=== PATIENT | female | born 1975 | race African-American/Black ===

== ENCOUNTER → 2016-11-12 | Outpatient (CLI) | payer OTHER | END | disposition home or self-care (01) | LOC: RAD 16:24 | PROVIDERS: ATTEND Family Medicine | DX: M79.604 Pain in right leg (principal); M79.605 Pain in left leg | CPT/HCPCS: 93970 ==

== ENCOUNTER → 2017-02-06 | Outpatient (CLI) | payer OTHER | END | disposition home or self-care (01) | LOC: CVU 14:44 | PROVIDERS: ATTEND Internal Medicine Cardiovascular Disease | DX: I87.2 Venous insufficiency (chronic) (peripheral) (principal) | CPT/HCPCS: 93970 ==

== ENCOUNTER → 2018-04-12 | Outpatient (CLI) | payer OTHER | END | disposition home or self-care (01) | LOC: CFH 09:54 | PROVIDERS: ATTEND Obstetrics & Gynecology | DX: Z12.31 Encounter for screening mammogram for malignant neoplasm of breast (principal) | CPT/HCPCS: 77067 ==

== ENCOUNTER → 2018-07-28 | Outpatient (CLI) | payer OTHER ==
[2018-07-28 08:17] LABS: BASOPHILS # (AUTO) 0.02 x10^3/uL (0-0.1); BASOPHILS % (AUTO) 0 % (0-1); EOSINOPHILS # (AUTO) 0.23 x10^3/uL (0-0.4); EOSINOPHILS % (AUTO) 3 % (1-7); LYMPHOCYTES # (AUTO) 1.72 x10^3/uL (1-3.4); LYMPHOCYTES % (AUTO) 25 % (22-44); MD NO; MEAN CORPUSCULAR HEMOGLOBIN 28.4 pg (27.0-34.8); MEAN CORPUSCULAR HGB CONC 33.9 g/dL (32.4-35.8); MEAN CORPUSCULAR VOLUME 83.5 fL (80-100); MEAN PLATELET VOLUME 8.4 fL (7.4-10.4); MONOCYTES # (AUTO) 0.37 x10^3/uL (0.2-0.8); MONOCYTES % (AUTO) 5 % (2-9); NEUTROPHILS # (AUTO) 4.66 x10^3/uL (1.8-6.8); NEUTROPHILS % (AUTO) 67 % (42-75); PLATELET COUNT 253 x10^3/uL (130-400); RED BLOOD COUNT 5.16 x10^6/uL (3.82-5.3); RED CELL DISTRIBUTION WIDTH 13.1 % (9.6-15.2)
[2018-07-28 08:22] LABS: ALBUMIN 3.5 g/dL (3.4-5.0); ANION GAP 7 mmol/L (5-15); CALCIUM 8.9 mg/dL (8.5-10.1); CHLORIDE 105 mmol/L (98-107)
[2018-07-28 08:32] LABS: ALANINE AMINOTRANSFERASE 24 U/L (12-78); ALKALINE PHOSPHATASE 42 U/L (45-117); BILIRUBIN,TOTAL 0.6 mg/dL (0.2-1.0); CHOL/HDL RATIO 2.5; CHOLESTEROL, TOTAL 169 mg/dL (140-239); CREATININE 0.98 mg/dL (0.55-1.02); FREE T4 (FREE THYROXINE) 1.24 ng/dL (0.76-1.46); HDL CHOL % 40 % (28-40); HDL CHOLESTEROL (DIRECT) 67 mg/dL (40-60); LDL CHOLESTEROL,CALCULATED 79 mg/dL (54-169); LDL/HDL RATIO 1.2 (0.5-3.0); TOTAL PROTEIN 7.4 g/dL (6.4-8.2); TRIGLYCERIDES 115 mg/dL (50-200); VLDL CHOLESTEROL 23 mg/dL (0-25)
== END | disposition home or self-care (01) ==
LOC: LAB 07:59
PROVIDERS: ATTEND Nurse Practitioner Primary Care
DX: E78.5 Hyperlipidemia, unspecified (principal); E66.9 Obesity, unspecified
CPT/HCPCS: 36415; 80053; 80061; 84439; 84443; 84481; 85025

== ENCOUNTER 2018-11-19 00:23 | Emergency (ER) | payer OTHER ==
[~2018-11-19] VITALS: Ht 172.7 cm; Wt 113.0 kg
[2018-11-19] MEDS ORDERED: FLUT9.9S NAS ×2 (00:50)
[2018-11-19] MEDS ORDERED: NORG1TAB26 PO (00:50)
[2018-11-19] MEDS ORDERED: LORA10TA75 PO (00:50)
[2018-11-19 00:54] LABS: BASOPHILS # (AUTO) 0.02 x10^3/uL (0-0.1); BASOPHILS % (AUTO) 0 % (0-1); EOSINOPHILS # (AUTO) 0.34 x10^3/uL (0-0.4); EOSINOPHILS % (AUTO) 6 % (1-7); LYMPHOCYTES # (AUTO) 2.01 x10^3/uL (1-3.4); LYMPHOCYTES % (AUTO) 33 % (22-44); MD NO; MEAN CORPUSCULAR HEMOGLOBIN 28.7 pg (27.0-34.8); MEAN CORPUSCULAR HGB CONC 34.2 g/dL (32.4-35.8); MONOCYTES # (AUTO) 0.29 x10^3/uL (0.2-0.8); MONOCYTES % (AUTO) 5 % (2-9); NEUTROPHILS # (AUTO) 3.52 x10^3/uL (1.8-6.8); NEUTROPHILS % (AUTO) 57 % (42-75); PLATELET COUNT 301 x10^3/uL (130-400); RED CELL DISTRIBUTION WIDTH 13.2 % (9.6-15.2)
--- NOTE | 2018-11-19 00:55 | NUR ---
PT PLACED IN HOSPITAL GOWN, PT ON CARDIAC AND VITALS MONITORS. LAB HAS DRAWN BLOOD. BILAT BEDRAILS UP. CALL LIGHT WITHIN REACH, PT AT BEDSIDE.
[2018-11-19 01:04] LABS: ALANINE AMINOTRANSFERASE 28 U/L (12-78); ALBUMIN 3.3 g/dL (3.4-5.0); ANION GAP 6 mmol/L (5-15); CALCIUM 8.7 mg/dL (8.5-10.1); CHLORIDE 110 mmol/L (98-107); CREATININE 1.09 mg/dL (0.55-1.02)
[2018-11-19 01:09] LABS: ALKALINE PHOSPHATASE 48 U/L (45-117); BILIRUBIN,TOTAL 0.2 mg/dL (0.2-1.0); T4 (THYROXINE) 14.4 mcg/dL (4.8-13.9); TOTAL PROTEIN 7.2 g/dL (6.4-8.2); TROPONIN I < 0.015 ng/mL (0.000-0.045)
[2018-11-19 01:28] VITALS: BP 121/80
== END 2018-11-19 01:40 | disposition home or self-care (01) ==
LOC: ED 01:15
DX: R00.2 Palpitations (principal); R94.6 Abnormal results of thyroid function studies; Z87.891 Personal history of nicotine dependence
CPT/HCPCS: 36415; 80053; 83735; 84436; 84443; 84484; 85025; 93005; 99284

== ENCOUNTER 2018-11-20 22:35 | Emergency (ER) | payer OTHER ==
[~2018-11-20] VITALS: Ht 172.7 cm; Wt 115.2 kg
[~2018-11-20 22:35] MED LIST: FLUT9.9S NAS; LORA10TA75 PO; NORG1TAB26 PO
--- NOTE | 2018-11-20 23:44 | NUR ---
PT ON STRATEGIC INSIGHTS LEAD SINUS RHYTHM 80'S. PT CAME IN TONIGHT FOR PALPITATIONS AND FEELING OF FULLNESS IN CHEST.
[2018-11-20 23:45] LABS: BASOPHILS # (AUTO) 0.04 x10^3/uL (0-0.1); BASOPHILS % (AUTO) 1 % (0-1); EOSINOPHILS # (AUTO) 0.36 x10^3/uL (0-0.4); EOSINOPHILS % (AUTO) 5 % (1-7); LYMPHOCYTES # (AUTO) 1.87 x10^3/uL (1-3.4); LYMPHOCYTES % (AUTO) 26 % (22-44); MD NO; MEAN CORPUSCULAR HEMOGLOBIN 28.6 pg (27.0-34.8); MEAN CORPUSCULAR VOLUME 86.7 fL (80-100); MONOCYTES # (AUTO) 0.43 x10^3/uL (0.2-0.8); MONOCYTES % (AUTO) 6 % (2-9); NEUTROPHILS # (AUTO) 4.56 x10^3/uL (1.8-6.8); NEUTROPHILS % (AUTO) 63 % (42-75); PLATELET COUNT 292 x10^3/uL (130-400); RED BLOOD COUNT 4.96 x10^6/uL (3.82-5.3); RED CELL DISTRIBUTION WIDTH 13.1 % (9.6-15.2)
[2018-11-20 23:56] LABS: ALBUMIN 3.3 g/dL (3.4-5.0); ANION GAP 4 mmol/L (5-15); CALCIUM 8.4 mg/dL (8.5-10.1); CHLORIDE 109 mmol/L (98-107); CREATININE 0.99 mg/dL (0.55-1.02)
[2018-11-20 23:59] LABS: TROPONIN I < 0.015 ng/mL (0.000-0.045)
[2018-11-21 01:15] VITALS: BP 108/69
== END 2018-11-21 01:16 | disposition home or self-care (01) ==
LOC: ED 23:48
DX: R00.2 Palpitations (principal); Z87.891 Personal history of nicotine dependence
CPT/HCPCS: 36415; 71045; 80048; 82040; 84484; 85025; 93005; 99284

== ENCOUNTER 2019-02-18 09:06 | Outpatient (CLI) | payer OTHER | END 2019-02-18 23:59 | disposition home or self-care (01) | LOC: CVU 09:06 | PROVIDERS: ATTEND Internal Medicine Cardiovascular Disease | DX: I35.8 Other nonrheumatic aortic valve disorders (principal) | CPT/HCPCS: 0399T; 93306 ==

== ENCOUNTER 2019-05-26 13:11 | Day surgery (SDC) | payer OTHER ==
[~2019-05-26] VITALS: Ht 172.7 cm; Wt 116.8 kg
[~2019-05-26 13:11] MED LIST changes: +CEFAZOLIN 1,000 MG ONE; +DEXAMETHASONE 4 MG/ML, 1ML ONE; +KETOROLAC 30 MG/1 ML ONE; -NORG1TAB26 PO; +NORG1TAB77 PO; +ONDANSETRON 2MG/ML, 2ML ONE; +PROPOFOL 10 MG/ML, 20ML ONE
[2019-05-26] MEDS ORDERED: LACTATED RINGERS 1,000 ML IV SCH ×2 (13:59→20:30)
[2019-05-26 14:15] LABS: HCG UR SG 1.004 (1.003-1.030)
[2019-05-26 14:27] VITALS: BP 151/97
[2019-05-26] MEDS ORDERED: HYDROCHLOROTH12.5 MG PO (14:42)
[2019-05-26] MEDS ORDERED: FENTANYL PF 250 MCG/5ML ONE (15:56)
[2019-05-26] MEDS ORDERED: BUPIVACAINE/EPI 0.5% 1:200K ONE (16:51)
[2019-05-26] MEDS ORDERED: KETOROLAC 30 MG/1 ML IV PRN (20:30)
[2019-05-26] MEDS ORDERED: OXYcodone 5 MG/5 ML ORAL.SOL UDC PO PRN (20:30)
[2019-05-26] MEDS ORDERED: DIPHENHYDRAMINE 50 MG/ML, 1ML IVPush PRN (20:30)
[2019-05-26] MEDS ORDERED: ONDANSETRON 2MG/ML, 2ML IVPush PRN (20:30)
[2019-05-26] MEDS ORDERED: IBUPROFEN 600 MG TABLET PO SCH (21:00)
== END 2019-05-26 20:30 | disposition home or self-care (01) ==
LOC: OR 13:11 → 4NE 19:13 → OR 20:30
PROVIDERS: ATTEND Surgery
DX: D49.2 Neoplasm of unspecified behavior of bone, soft tissue, and skin (principal); L72.3 Sebaceous cyst; I10 Essential (primary) hypertension; Z72.89 Other problems related to lifestyle; Z79.899 Other long term (current) drug therapy; Z87.891 Personal history of nicotine dependence
CPT/HCPCS: 11406; 12032; 24071; 25075; 27337; 81025; 88304; J0690; J1100; J1885; J2405; J2704; J3010; J7120; 88305; G0378

== ENCOUNTER 2020-01-01 11:18 | Outpatient (CLI) | payer OTHER ==
[~2020-01-01 11:18] MED LIST changes: -CEFAZOLIN 1,000 MG ONE; -DEXAMETHASONE 4 MG/ML, 1ML ONE; +HYDROCHLOROTH12.5 MG PO; -KETOROLAC 30 MG/1 ML ONE; -ONDANSETRON 2MG/ML, 2ML ONE; -PROPOFOL 10 MG/ML, 20ML ONE
== END 2020-01-01 23:59 | disposition home or self-care (01) ==
LOC: RAD 11:18
PROVIDERS: ATTEND Physician Assistant
DX: M25.562 Pain in left knee (principal); M79.605 Pain in left leg

== ENCOUNTER → 2020-03-26 | Outpatient (CLI) | payer OTHER | END | disposition home or self-care (01) | LOC: CFH 13:49 | PROVIDERS: ATTEND Obstetrics & Gynecology | DX: N64.4 Mastodynia (principal) | CPT/HCPCS: 76642; 77066; G0279 ==

== ENCOUNTER 2020-03-30 00:40 | Inpatient (IN) | payer OTHER ==
[~2020-03-30] VITALS: Ht 172.7 cm; Wt 120.1 kg
[2020-03-30] MEDS ORDERED: ASPIRIN 81 MG TABLET CHEW ONE (01:09)
[2020-03-30] MEDS ORDERED: MORPHINE SULFATE 4 MG/ML, 1ML ONE ×2 (01:09→04:24)
[2020-03-30] MEDS: MORPHINE SULFATE 4 MG/ML, 1ML IVPush PRN ×2 (01:12→04:51)
--- NOTE | 2020-03-30 01:13 | NUR ---
PIV STARTED, PT MEDICATED PER OLEGARIO LUTHER
[2020-03-30 01:19] LABS: BASOPHILS # (AUTO) 0.02 x10^3/uL (0-0.1); BASOPHILS % (AUTO) 0 % (0-1); EOSINOPHILS % (AUTO) 5 % (1-7); LYMPHOCYTES % (AUTO) 19 % (22-44); MD NO; MEAN CORPUSCULAR HEMOGLOBIN 27.8 pg (27.0-34.8); MEAN CORPUSCULAR HGB CONC 32.7 g/dL (32.4-35.8); MEAN PLATELET VOLUME 7.7 fL (7.4-10.4); MONOCYTES # (AUTO) 0.44 x10^3/uL (0.2-0.8); MONOCYTES % (AUTO) 5 % (2-9); NEUTROPHILS # (AUTO) 6.02 x10^3/uL (1.8-6.8); NEUTROPHILS % (AUTO) 71 % (42-75); PLATELET COUNT 215 x10^3/uL (130-400); RED CELL DISTRIBUTION WIDTH 12.6 % (9.6-15.2)
[2020-03-30] MEDS ORDERED: ASPIRIN 81 MG TABLET CHEW PO ONE (01:30)
[2020-03-30 01:39] LABS: ALBUMIN 3.2 g/dL (3.4-5.0); ANION GAP 5 mmol/L (5-15); CALCIUM 8.6 mg/dL (8.5-10.1); CHLORIDE 107 mmol/L (98-107); CREATININE 0.94 mg/dL (0.55-1.02)
[2020-03-30 01:59] LABS: TROPONIN I 0.272 ng/mL (0.000-0.045)
--- NOTE | 2020-03-30 02:13 | NUR ---
REPORT OF PT FROM KEITH GUILLAUME AND ASSUMING CARE OF PT AT THIS TIME. NEW ORDERS RECEIVED AND CLARIFIED WITH PHARMACY FOR CORRECT WEIGHT BASED THERAPY. PT TO CT VIA PEREZ AT THIS TIME.
[2020-03-30] MEDS ORDERED: HEPARIN 5,000 UNITS/ML, 1ML IV ONE (02:30)
[2020-03-30] MEDS ORDERED: OMNIPAQUE 350 MG/ML, 75ML BOTTLE ONE (02:31)
[2020-03-30] MEDS ORDERED: HEPARIN 25,000 UNITS/250ML PMX 250 ML ONE (02:33)
[2020-03-30] MEDS ORDERED: HEPARIN 5,000 UNITS/ML, 1ML ONE ×2 (02:33→09:43)
[2020-03-30] MEDS: HEPARIN 25,000 UNITS/250ML PMX 250 ML IV PRN ×2 (02:40→22:22)
--- NOTE | 2020-03-30 02:44 | NUR ---
PT BACK FROM CT VIA PEREZ. PT MEDICATED PER SEP. PT HAS CALL LIGHT WITHIN REACH AND DENIES ANY OTHER NEEDS AT THIS TIME.
--- NOTE | 2020-03-30 03:38 | NUR ---
PT RESTING COMFORTABLY IN GURNEY AT THIS TIME AND PT DENIES ANY NEEDS. CALL LIGHT IS WITHIN REACH. PT VSS AND UPDATED IN EMR AT THIS TIME.
[2020-03-30] MEDS ORDERED: BISACODYL 10 MG SUPP PR PRN (04:00)
[2020-03-30] MEDS ORDERED: ONDANSETRON 2MG/ML, 2ML IVPush PRN (04:00)
[2020-03-30] MEDS ORDERED: POLYETHYLENE GLYCOL 17 GM PACKET PO PRN (04:00)
[2020-03-30] MEDS ORDERED: morphine SULFATE 10 MG/ML, 1ML IVPush PRN (04:00)
[2020-03-30] MEDS ORDERED: OXYcodone IR 5MG TABLET PO PRN (04:00)
[2020-03-30] MEDS ORDERED: FLUTICASONE NASAL SPRAY 16GM NAS PRN (04:00)
[2020-03-30] MEDS ORDERED: LABETALOL 5MG/ML, 20ML IVPush PRN (04:00)
[2020-03-30] MEDS ORDERED: ACETAMINOPHEN 325 MG TABLET PO PRN (04:00)
[2020-03-30] MEDS ORDERED: LORATADINE 10 MG TABLET PO PRN (04:00)
[2020-03-30] MEDS ORDERED: ONDANSETRON ODT 4 MG PO PRN (04:00)
[2020-03-30] MEDS ORDERED: PROMETHAZINE 25 MG/ML, 1ML IM PRN (04:00)
[2020-03-30] MEDS ORDERED: DOCUSATE 100 MG CAPSULE PO PRN (04:00)
[2020-03-30 04:20] LABS: LDL/HDL RATIO 1.4 (0.5-3.0)
--- NOTE | 2020-03-30 04:22 | NUR ---
US AT BS WITH PT AT THIS TIME. HOSPITAL BED OUTSIDE OF ROOM TO REPLACE PT PEREZ.
--- NOTE | 2020-03-30 04:53 | NUR ---
PT MEDICATED FOR PAIN PER SEP. PT VSS AND UPDATE IN EMR AT THIS TIME.
--- NOTE | 2020-03-30 05:15 | NUR ---
PT SWITCHED TO HOSPITAL BED AT THIS TIME.
--- NOTE | 2020-03-30 07:29 | NUR ---
SBAR RPT REC'D FROM KEITH DANGELO. PT IN HOSPITAL BED, AWAKE ALERT WITH NO COMPLAINTS. VERIFIED HEP GTT INFUSING W/O DIFFICULTY AT 1000UNITS/HR. NEXT ANTI XA DUE AT 0840. CALL LIGHT W/I REACH.
--- NOTE | 2020-03-30 08:25 | NUR ---
PT VSS, BREAKFAST TRAY DELIVERED AND SET UP. NAD NOTED.
--- NOTE | 2020-03-30 09:37 | NUR ---
ANTI Xa = 0.28, call placed to Dr Donovan RE:RE BOLUS
--- NOTE | 2020-03-30 09:40 | NUR ---
ANTI Xa ORDERED FOR 1540. HEPARIN GTT INCREASED TO 1200UNITS/HR
--- NOTE | 2020-03-30 09:51 | NUR ---
DR HICKEY RTD CALL, OK TO GIVE REBOLUS. RE-BOLUS NOT ON SEP, CONTACTED [facility]. VERIFIED ORDERS AND REBOLUS AMT. PHARM TO PLACE ON MAR
[2020-03-30] MEDS: HEPARIN 5,000 UNITS/ML, 1ML IV PRN ×2 (09:54→23:41)
[2020-03-30] MEDS: HYDROCHLOROTHIAZIDE 12.5 MG CAPSULE PO SCH (10:14)
[2020-03-30 13:23] VITALS: BP 153/100
[2020-03-30 13:34] VITALS: BP 153/100
[2020-03-30 19:15] VITALS: BP 138/83
[2020-03-31 00:49] VITALS: BP 120/84
[2020-03-31 04:23] LABS: BASOPHILS # (AUTO) 0.02 x10^3/uL (0-0.1); BASOPHILS % (AUTO) 0 % (0-1); EOSINOPHILS # (AUTO) 0.41 x10^3/uL (0-0.4); EOSINOPHILS % (AUTO) 6 % (1-7); LYMPHOCYTES # (AUTO) 1.84 x10^3/uL (1-3.4); LYMPHOCYTES % (AUTO) 27 % (22-44); MD NO; MEAN CORPUSCULAR HEMOGLOBIN 28.3 pg (27.0-34.8); MEAN CORPUSCULAR HGB CONC 33.3 g/dL (32.4-35.8); MEAN PLATELET VOLUME 8.2 fL (7.4-10.4); MONOCYTES # (AUTO) 0.37 x10^3/uL (0.2-0.8); MONOCYTES % (AUTO) 6 % (2-9); NEUTROPHILS # (AUTO) 4.18 x10^3/uL (1.8-6.8); NEUTROPHILS % (AUTO) 61 % (42-75); PLATELET COUNT 212 x10^3/uL (130-400); RED BLOOD COUNT 4.91 x10^6/uL (3.82-5.3); RED CELL DISTRIBUTION WIDTH 12.7 % (9.6-15.2)
[2020-03-31 04:29] LABS: ALANINE AMINOTRANSFERASE 18 U/L (12-78); ANION GAP 6 mmol/L (5-15); CALCIUM 8.6 mg/dL (8.5-10.1); CHLORIDE 104 mmol/L (98-107)
[2020-03-31 04:31] LABS: ALKALINE PHOSPHATASE 45 U/L (45-117); BILIRUBIN,TOTAL 0.3 mg/dL (0.2-1.0); TOTAL PROTEIN 6.8 g/dL (6.4-8.2)
[2020-03-31] MEDS: HYDROCHLOROTHIAZIDE 12.5 MG CAPSULE PO SCH (07:55)
[2020-03-31 08:35] VITALS: BP 135/87
[2020-03-31] MEDS: RIVAROXABAN 15 MG TABLET PO SCH ×2 (09:02→16:29)
[2020-03-31 12:21] VITALS: BP 138/88
[2020-03-31 19:29] VITALS: BP 138/96
[2020-04-01 00:49] VITALS: BP 124/79
[2020-04-01 06:27] VITALS: BP 120/79
[2020-04-01] MEDS ORDERED: RIVA20TA PO (07:27)
[2020-04-01] MEDS ORDERED: RIVA15TA PO (07:27)
[2020-04-01] MEDS: HYDROCHLOROTHIAZIDE 12.5 MG CAPSULE PO SCH (08:03)
[2020-04-01] MEDS: RIVAROXABAN 15 MG TABLET PO SCH (08:04)
== END 2020-04-01 11:59 | disposition home or self-care (01) | DRG 175 ==
LOC: ED 03:35 → EDIP 03:45 → 4WST 13:07 → DCLOUNGE 04-01 11:46
PROVIDERS: ADMIT Internal Medicine; ATTEND Hospitalist
DX: I26.99 Other pulmonary embolism without acute cor pulmonale (principal); I21.A1 Myocardial infarction type 2; I47.1 Supraventricular tachycardia; Z68.41 Body mass index [BMI] 40.0-44.9, adult; I82.412 Acute embolism and thrombosis of left femoral vein; I82.432 Acute embolism and thrombosis of left popliteal vein; I10 Essential (primary) hypertension; I27.20 Pulmonary hypertension, unspecified; Z86.72 Personal history of thrombophlebitis; E66.9 Obesity, unspecified; Z86.018 Personal history of other benign neoplasm
CPT/HCPCS: 36415; 71045; 71275; 80048; 80053; 80061; 82040; 83036; 83735; 83880; 84443; 84484; 84703; 85025; 85379; 85520; 93005; 93306; 93970; 96374; 96375; 96376; 99285; G0378; J1644; Q9967; J2270

== ENCOUNTER → 2020-05-01 | Outpatient (CLI) | payer OTHER ==
[~2020-05-01] MED LIST changes: +RIVA15TA PO; +RIVA20TA PO
== END | disposition home or self-care (01) ==
LOC: CFH 04-10 10:35
PROVIDERS: ATTEND Obstetrics & Gynecology
DX: N85.2 Hypertrophy of uterus (principal); D25.9 Leiomyoma of uterus, unspecified
CPT/HCPCS: 76830

== ENCOUNTER → 2020-05-21 | Outpatient (CLI) | payer OTHER | END | disposition home or self-care (01) | LOC: LAB 14:03 | PROVIDERS: ATTEND Nurse Practitioner Primary Care | DX: I26.99 Other pulmonary embolism without acute cor pulmonale (principal); I82.402 Acute embolism and thrombosis of unspecified deep veins of left lower extremity | CPT/HCPCS: 36415; 81241; 85230; 85240; 85302; 85305; 85306 ==

== ENCOUNTER 2020-06-27 06:27 | Emergency (ER) | payer OTHER ==
[~2020-06-27] VITALS: Ht 172.7 cm; Wt 119.9 kg
--- NOTE | 2020-06-27 07:06 | NUR ---
report given to jeancarlos cano
--- NOTE | 2020-06-27 07:20 | NUR ---
assumed care of pt. report from Dawn PARKER pt here for evaluation of sharp sternal CP with inspiration for a couple of days. 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 pt states that she only has pain with deep inspiration or with exertion. denies pain at this time. denies SOB. lab has been to bedside to draw. NSR on monitor. pt updated on POC
[2020-06-27 07:26] LABS: BASOPHILS % (AUTO) 0 % (0-1); EOSINOPHILS % (AUTO) 4 % (1-7); LYMPHOCYTES % (AUTO) 24 % (22-44); MEAN CORPUSCULAR HEMOGLOBIN 28.4 pg (27.0-34.8); MEAN CORPUSCULAR HGB CONC 33.8 g/dL (32.4-35.8); MEAN PLATELET VOLUME 7.9 fL (7.4-10.4); MONOCYTES % (AUTO) 6 % (2-9); NEUTROPHILS % (AUTO) 66 % (42-75); PLATELET COUNT 217 x10^3/uL (130-400); RED BLOOD COUNT 5.14 x10^6/uL (3.82-5.3); RED CELL DISTRIBUTION WIDTH 13.6 % (9.6-15.2)
[2020-06-27 07:30] LABS: ALANINE AMINOTRANSFERASE 24 U/L (12-78); ALBUMIN 3.6 g/dL (3.4-5.0); ANION GAP 6 mmol/L (5-15); CALCIUM 8.6 mg/dL (8.5-10.1); CHLORIDE 107 mmol/L (98-107); CREATININE 0.93 mg/dL (0.55-1.02)
[2020-06-27 07:32] LABS: MD NO
[2020-06-27 07:35] LABS: ALKALINE PHOSPHATASE 47 U/L (45-117); BILIRUBIN,TOTAL 0.5 mg/dL (0.2-1.0); TOTAL PROTEIN 7.4 g/dL (6.4-8.2); TROPONIN I < 0.015 ng/mL (0.000-0.045)
--- NOTE | 2020-06-27 08:10 | NUR ---
pt to CT scan
[2020-06-27] MEDS ORDERED: OMNIPAQUE 350 MG/ML, 100ML BOTTLE ONE (08:46)
--- NOTE | 2020-06-27 08:50 | NUR ---
pt returned from CT scan. no new c/o. no apaprent distress. pt ambualted to BR without difficulty
--- NOTE | 2020-06-27 09:05 | NUR ---
Jerrod WILKERSON at bedside for recheck and COVID swab
[2020-06-27 09:41] VITALS: BP 117/84
== END 2020-06-27 09:45 | disposition home or self-care (01) ==
LOC: ED 07:32
DX: R07.89 Other chest pain (principal); J18.0 Bronchopneumonia, unspecified organism; I10 Essential (primary) hypertension; Z20.828 Contact with and (suspected) exposure to other viral communicable diseases
CPT/HCPCS: 36415; 71275; 80053; 84484; 84703; 85025; 87635; 93005; 99285; Q9967

== ENCOUNTER → 2020-11-06 | Outpatient (CLI) | payer OTHER | END | disposition home or self-care (01) | LOC: RAD 13:45 | PROVIDERS: ATTEND Emergency Medicine | DX: M79.605 Pain in left leg (principal); M79.89 Other specified soft tissue disorders ==

== ENCOUNTER → 2020-11-17 | Outpatient (CLI) | payer OTHER ==
[2020-11-17 07:51] LABS: BASOPHILS % (AUTO) 1 % (0-1); EOSINOPHILS % (AUTO) 5 % (1-7); LYMPHOCYTES % (AUTO) 22 % (22-44); MEAN CORPUSCULAR HEMOGLOBIN 28.7 pg (27.0-34.8); MEAN CORPUSCULAR HGB CONC 33.9 g/dL (32.4-35.8); MEAN PLATELET VOLUME 7.7 fL (7.4-10.4); MONOCYTES % (AUTO) 5 % (2-9); NEUTROPHILS % (AUTO) 68 % (42-75); PLATELET COUNT 240 x10^3/uL (130-400); RED BLOOD COUNT 5.09 x10^6/uL (3.82-5.3); RED CELL DISTRIBUTION WIDTH 13.3 % (9.6-15.2)
[2020-11-17 08:01] LABS: MD NO
[2020-11-17 08:02] LABS: ANION GAP 4 mmol/L (5-15); CALCIUM 8.8 mg/dL (8.5-10.1); CHLORIDE 106 mmol/L (98-107); CREATININE 0.82 mg/dL (0.55-1.02)
== END | disposition home or self-care (01) ==
LOC: LAB 07:27
PROVIDERS: ATTEND Student in an Organized Health Care Education/Training Program
DX: H61.21 Impacted cerumen, right ear (principal); B00.1 Herpesviral vesicular dermatitis; D17.9 Benign lipomatous neoplasm, unspecified; E66.9 Obesity, unspecified; E78.5 Hyperlipidemia, unspecified; I10 Essential (primary) hypertension; I26.99 Other pulmonary embolism without acute cor pulmonale; I21.4 Non-ST elevation (NSTEMI) myocardial infarction; I82.402 Acute embolism and thrombosis of unspecified deep veins of left lower extremity; I87.2 Venous insufficiency (chronic) (peripheral)
CPT/HCPCS: 36415; 80048; 85025

== ENCOUNTER → 2020-12-14 | Outpatient (CLI) | payer OTHER ==
[~2020-12-14] MED LIST changes: +ASCO500T8 PO; +B Complex PO; +CHOL10003 PO; +LYSI500T8 PO; +MAGN250T8 PO; +MULT-449 PO; +MULT-672 PO; +OMEG1CAP39 PO; +POTA99TA3 PO; +RIVA10TA2 PO
[2020-12-14 15:11] LABS: BASOPHILS % (AUTO) 1 % (0-1); EOSINOPHILS % (AUTO) 3 % (1-7); LYMPHOCYTES % (AUTO) 20 % (22-44); MEAN CORPUSCULAR HEMOGLOBIN 28.8 pg (27.0-34.8); MEAN PLATELET VOLUME 7.9 fL (7.4-10.4); MONOCYTES % (AUTO) 5 % (2-9); NEUTROPHILS % (AUTO) 71 % (42-75); PLATELET COUNT 260 x10^3/uL (130-400); RED BLOOD COUNT 5.02 x10^6/uL (3.82-5.3); RED CELL DISTRIBUTION WIDTH 13.4 % (9.6-15.2)
[2020-12-14 15:17] LABS: MICROSCOPIC NOT IND
[2020-12-14 15:22] LABS: ALANINE AMINOTRANSFERASE 31 U/L (12-78); ALBUMIN 3.6 g/dL (3.4-5.0); ANION GAP 5 mmol/L (5-15); CALCIUM 8.8 mg/dL (8.5-10.1); CHLORIDE 103 mmol/L (98-107); CREATININE 0.82 mg/dL (0.55-1.02)
[2020-12-14 15:26] LABS: ALKALINE PHOSPHATASE 51 U/L (45-117); BILIRUBIN,TOTAL 0.4 mg/dL (0.2-1.0); TOTAL PROTEIN 7.3 g/dL (6.4-8.2)
== END | disposition home or self-care (01) ==
LOC: STAR 14:15
PROVIDERS: ATTEND Obstetrics & Gynecology
DX: Z01.818 Encounter for other preprocedural examination (principal); R10.2 Pelvic and perineal pain; D25.9 Leiomyoma of uterus, unspecified
CPT/HCPCS: 36415; 80053; 81003; 84702; 85025; 93005

== ENCOUNTER 2020-12-20 09:39 | Inpatient (IN) | payer OTHER ==
[~2020-12-20] VITALS: Ht 172.7 cm; Wt 118.0 kg
[2020-12-20 10:16] VITALS: BP 127/88
[2020-12-20 10:17] LABS: HCG UR SG 1.011 (1.003-1.030)
[2020-12-20] MEDS ORDERED: LACTATED RINGERS 1,000 ML IV SCH (10:30)
[2020-12-20] MEDS ORDERED: CHLORHEXIDINE 15 ML UDC PO ONE (10:30)
[2020-12-20] MEDS ORDERED: MIDAZOLAM 1 MG/ML, 2ML ONE (10:53)
[2020-12-20] MEDS ORDERED: FENTANYL PF 250 MCG/5ML ONE (10:53)
[2020-12-20] MEDS ORDERED: BUPIVACAINE/PF 0.25% ONE (12:04)
[2020-12-20] MEDS ORDERED: SUGAMMADEX 200 MG/2 ML IVPush ONE (12:29)
[2020-12-20] MEDS ORDERED: CEFAZOLIN 1,000 MG ONE (12:29)
[2020-12-20] MEDS ORDERED: ROCURONIUM 10 MG/ML,10ML ONE (12:29)
[2020-12-20] MEDS ORDERED: PROPOFOL 10 MG/ML, 20ML ONE (12:29)
[2020-12-20] MEDS ORDERED: EPHEDRINE 50 MG/ML, 1ML ONE (12:29)
[2020-12-20] MEDS ORDERED: ONDANSETRON 2MG/ML, 2ML ONE (12:29)
[2020-12-20] MEDS ORDERED: DEXAMETHASONE 4 MG/ML, 1ML ONE (12:29)
[2020-12-20] MEDS ORDERED: KETOROLAC 30 MG/1 ML ONE (12:29)
[2020-12-20] MEDS ORDERED: ACETAMINOPHEN 325 MG TABLET PO PRN ×2 (13:30→17:30)
[2020-12-20] MEDS ORDERED: PROMETHAZINE 12.5 MG SUPP PR PRN (13:30)
[2020-12-20] MEDS ORDERED: MEPERIDINE/PF 25MG/0.5ML IVPush PRN (13:30)
[2020-12-20] MEDS ORDERED: LORazepam 2 MG/ML, 1ML IVPush PRN (13:30)
[2020-12-20] MEDS ORDERED: OXYcodone 5 MG/5 ML ORAL.SOL UDC PO PRN (13:30)
[2020-12-20] MEDS ORDERED: ONDANSETRON 2MG/ML, 2ML IVPush PRN (13:30)
[2020-12-20] MEDS ORDERED: MIDAZOLAM 1 MG/ML, 2ML IV PRN (13:30)
[2020-12-20] MEDS ORDERED: FENTANYL PF 100 MCG/2ML ONE ×4 (13:43→15:11)
[2020-12-20] MEDS ORDERED: FLUORESCEIN SODIUM 500 MG/5 ML ONE (14:18)
[2020-12-20] MEDS ORDERED: OXYcodone 5 MG/5 ML ORAL.SOL UDC ONE (14:55)
[2020-12-20] MEDS: FENTANYL PF 100 MCG/2ML IV PRN ×4 (15:00→15:52)
[2020-12-20] MEDS ORDERED: HYDROmorphone 1 MG/ML, 1ML INJ ONE (15:12)
[2020-12-20] MEDS: HYDROmorphone 1 MG/ML, 1ML INJ IVPush PRN ×2 (15:36→15:41)
[2020-12-20 16:30] VITALS: BP 126/80
[2020-12-20] MEDS: D5%-LACTATED RINGERS 1,000 ML IV SCH (17:26)
[2020-12-20] MEDS ORDERED: ACETAMINOPHEN 650 MG SUPP PR PRN (17:30)
[2020-12-20] MEDS: SIMETHICONE 80 MG CHEW TAB PO PRN (20:12)
[2020-12-20] MEDS: KETOROLAC 30 MG/1 ML IV PRN (20:12)
[2020-12-20 20:17] VITALS: BP 137/87
[2020-12-21 00:24] VITALS: BP 117/78
[2020-12-21] MEDS: D5%-LACTATED RINGERS 1,000 ML IV SCH ×3 (00:45→20:00)
[2020-12-21] MEDS: KETOROLAC 30 MG/1 ML IV PRN ×2 (02:27→09:54)
[2020-12-21 04:36] VITALS: BP 107/69
[2020-12-21 08:10] VITALS: BP 111/74
[2020-12-21 12:52] VITALS: BP 112/74
[2020-12-21] MEDS: OXYcodone/APAP 5/325MG TABLET PO PRN ×2 (15:38→22:03)
[2020-12-21] MEDS ORDERED: RIVAROXABAN 10 MG TABLET PO SCH (17:00)
[2020-12-21 19:23] VITALS: BP 119/73
[2020-12-21] MEDS: SIMETHICONE 80 MG CHEW TAB PO PRN (22:03)
[2020-12-22 03:20] VITALS: BP 116/81
[2020-12-22] MEDS: OXYcodone/APAP 5/325MG TABLET PO PRN ×3 (03:29→11:44)
[2020-12-22] MEDS: D5%-LACTATED RINGERS 1,000 ML IV SCH ×2 (04:00→10:52)
[2020-12-22] MEDS: IBUPROFEN 600 MG TABLET PO SCH ×2 (06:00→10:35)
[2020-12-22 07:40] VITALS: BP 127/88
[2020-12-22] MEDS: SIMETHICONE 80 MG CHEW TAB PO PRN (10:54)
[2020-12-22 13:36] VITALS: BP 131/75
== END 2020-12-22 18:00 | disposition home or self-care (01) | DRG 743 ==
LOC: ORIP 09:39 → EDSTATUS 11:30 → 4NE 16:15
PROVIDERS: ADMIT Obstetrics & Gynecology; ATTEND Obstetrics & Gynecology
PROC: 0UT90ZZ Resection of Uterus, Open Approach (ICD-10-PCS; 2020-12-20)
PROC: 0UT70ZZ Resection of Bilateral Fallopian Tubes, Open Approach (ICD-10-PCS; principal; 2020-12-20 11:30)
DX: D25.0 Submucous leiomyoma of uterus (principal); D25.1 Intramural leiomyoma of uterus; N92.0 Excessive and frequent menstruation with regular cycle; Z79.01 Long term (current) use of anticoagulants; Z86.711 Personal history of pulmonary embolism; Z79.899 Other long term (current) drug therapy; Z79.891 Long term (current) use of opiate analgesic; Z98.891 History of uterine scar from previous surgery; Z20.822 Contact with and (suspected) exposure to COVID-19
CPT/HCPCS: 36415; J7121; 81025; 85014; 85018; 86850; 86900; 88307; G0378; J0690; J1100; J1170; J1885; J2250; J2270; J2405; J2704; J3010; U0005; J7120; U0003